=== PATIENT | female | born 1985 | race Caucasian/White ===

== ENCOUNTER → 2016-07-12 | Outpatient (CLI) | payer MEDICARE ==
[~2016-07-12] MED LIST: AMBIEN 5MG TABLE5 MG; CEFTIN250 M1 PO; DIFLUCAN150 MG PO; DUO-KAPS1 CAP PO; FLEXERIL10 MG PO; GRALISE300 MG; LEVAQUIN 250MG250 MG PO; LORTAB 5/500 501 TAB PO; MOTRIN 800800 MG/TAB; MUSCLE RELAXER; NO HOME MEDICATIONS; NORCO 325 MG-51 TAB PO; OMNICEF 300MG300 MG PO; PERCOCET 325 MG1 TA2; PERCOCET 325 MG1 TAB PO; PREDNISONE1 MG PO; PRILOSEC 20MG20 MG PO; PROVENTIL0.09 MG/A1 IH; PYRIDIUM200 M1; RYZOLT100 MG; SKELAXIN400 MG PO; SYNTHROID 0.0.025 MG PO; TESSALON PERLE100 MG PO; ZITHROMAX Z PA250 MG PO; ZOFRAN ODT4 MG PO
== END ==
LOC: MC.RAD 15:00
DX: Z12.31 Encounter for screening mammogram for malignant neoplasm of breast (principal); Z80.3 Family history of malignant neoplasm of breast

== ENCOUNTER → 2016-09-23 | Outpatient (CLI) | payer MEDICARE | LOC: COL.RAD 09:38 | DX: R51 Headache (principal); M54.6 Pain in thoracic spine ==

== ENCOUNTER → 2016-10-07 | Outpatient (CLI) | payer MEDICARE | LOC: MHCPAIN 08:00 | DX: G89.29 Other chronic pain (principal); M50.90 Cervical disc disorder, unspecified, unspecified cervical region; G56.13 Other lesions of median nerve, bilateral upper limbs; M54.81 Occipital neuralgia; M54.30 Sciatica, unspecified side; G56.21 Lesion of ulnar nerve, right upper limb | CPT/HCPCS: G0463 ==

== ENCOUNTER → 2016-10-12 | Outpatient (CLI) | payer MEDICARE | LOC: MHCPAIN 12:47 | DX: M54.81 Occipital neuralgia (principal) | CPT/HCPCS: J1040 ==

== ENCOUNTER → 2016-10-25 | Outpatient (CLI) | payer MEDICARE | LOC: MHCPAIN 09:34 | DX: G89.29 Other chronic pain (principal); M50.90 Cervical disc disorder, unspecified, unspecified cervical region; M54.81 Occipital neuralgia; G56.13 Other lesions of median nerve, bilateral upper limbs; G56.21 Lesion of ulnar nerve, right upper limb | CPT/HCPCS: G0463 ==

== ENCOUNTER 2020-03-16 14:00 | Outpatient (RCR) | payer BC, MEDICARE ==
[2020-03-04 14:43] VITALS: BP 113/64; PULSE 86; TEMP 98
[2020-03-09 14:07] VITALS: BP 107/73; PULSE 90; TEMP 97.5
[2020-03-12 14:49] VITALS: BP 108/60; PULSE 84; TEMP 97.6
[~2020-03-16] VITALS: Ht 170.2 cm; Wt 94.0 kg
[~2020-03-16 14:00] MED LIST changes: +AMBIEN 10MG10 MG PO; +ELAVIL100 MG PO; +FLEXERIL 1010 MG/TAB PO; +MOTRIN 800800 MG/TAB PO; +NEXIUM 40MG40 MG PO; +ULTRAM 50MG TAB50 MG PO
[2020-03-16 14:55] VITALS: BP 104/71; PULSE 86; TEMP 98.2
--- NOTE | 2020-03-16 16:09 | NUR ---
IV DC'd with catheter intact. Pt ambulates from dept with steady gait.
== END 2020-03-16 16:17 | disposition still patient (30) ==
LOC: EUO 14:00
DX: D50.8 Other iron deficiency anemias (principal)
CPT/HCPCS: J2916

== ENCOUNTER 2020-08-13 10:00 | Outpatient (RCR) | payer BC, MEDICARE ==
[2020-08-04 13:11] VITALS: BP 107/70; PULSE 94; TEMP 98.5
[2020-08-07 15:40] VITALS: BP 110/72; PULSE 82; TEMP 98
[2020-08-10 13:42] VITALS: BP 118/66; PULSE 92; TEMP 98.8
[~2020-08-13] VITALS: Ht 170.2 cm; Wt 98.0 kg
[2020-08-13 10:32] VITALS: BP 108/54; PULSE 90; TEMP 97.8
== END 2020-08-13 18:03 | disposition home or self-care (01) ==
LOC: EUO 10:00
DX: D50.8 Other iron deficiency anemias (principal)
CPT/HCPCS: J2916

== ENCOUNTER 2022-01-10 15:20 | Outpatient (RCR) | payer MEDICARE ==
[2021-12-31 14:59] VITALS: BP 128/76; PULSE 91; TEMP 98.2
[2022-01-03 14:30] VITALS: BP 113/71; PULSE 95; TEMP 98.2
[2022-01-05 14:29] VITALS: BP 109/67; PULSE 88; TEMP 97
[2022-01-07 16:31] VITALS: BP 130/82; PULSE 98; TEMP 97.9
[~2022-01-10] VITALS: Ht 170.2 cm; Wt 108.0 kg
[2022-01-10 15:08] VITALS: BP 118/78; PULSE 85; TEMP 98.2
== END 2022-01-10 15:36 | disposition home or self-care (01) ==
LOC: EUO 15:20
DX: D50.8 Other iron deficiency anemias (principal)
CPT/HCPCS: J1756

== ENCOUNTER 2022-09-15 15:30 | Outpatient (RCR) | payer MEDICARE ==
[2022-09-05 15:31] VITALS: BP 130/81; PULSE 86; TEMP 98.2
[2022-09-07 15:32] VITALS: BP 122/77; PULSE 88; TEMP 97.9
--- NOTE | 2022-09-07 15:58 | NUR ---
Pt tolerated infusion well. IV DC'd, she exits dept with steady gait.
[2022-09-09 15:36] VITALS: BP 133/81; PULSE 95; TEMP 98.2
[2022-09-12 16:45] VITALS: BP 150/83; PULSE 86; TEMP 97.6
[~2022-09-15] VITALS: Ht 170.2 cm; Wt 108.3 kg
[~2022-09-15 15:30] MED LIST changes: +CYMBALTA 60MG60 MG PO; +OSCAL 500 TAB500 MG PO; +PROTONIX 40MG T40 MG PO; +VITAMIND3 5000 PO; +ZOLOFT 50MG50 MG PO
[2022-09-15 15:32] VITALS: BP 149/81; PULSE 88; TEMP 97.6
== END 2022-09-15 15:55 | disposition home or self-care (01) ==
LOC: EUO 15:30
DX: D50.8 Other iron deficiency anemias (principal)
CPT/HCPCS: J1756